=== PATIENT | female | born 1935 | race African-American/Black ===

== ENCOUNTER 2017-01-17 11:16 | Emergency (ER) | payer OTHER ==
[~2017-01-17] VITALS: Ht 157.5 cm; Wt 85.7 kg
--- NOTE | 2017-01-17 11:16 | NUR ---
Patient was BIBA and taken to bed 04 via gurney per EMS.
[2017-01-17 11:20] VITALS: BP 141/61
--- NOTE | 2017-01-17 11:20 | NUR ---
PATIENT PRESENTS TO ED BIB EMS WITH MECHANICAL FALL OUTSIDE HOME ONTO GRASS AREA, INJURED LEFT GREAT TOE----PARTIAL AMPUTATION---APPEARS HALF OF MEDIAL ASPECT OF LEFT GREAT TOE IS PARTIALLY OFF HX--HTN, HYPERLIPIDEMIA, PRE-DM DENIES N/V/D; SKIN IS PINK/WARM/DRY; AAOX4 WITH EVEN AND STEADY GAIT; LUNGS CLEAR BL; HR EVEN AND REGULAR; PT DENIES ANY FEVER, CP, SOB, OR COUGH AT THIS TIME; PATIENT STATES LEFT GREAT TOE PAIN OF 10/10 AT THIS TIME; VSS; PATIENT POSITIONED FOR COMFORT; HOB ELEVATED; BEDRAILS UP X2; BED DOWN. ER MD MADE AWARE OF PT STATUS.
--- NOTE | 2017-01-17 11:20 | NUR ---
ATTEMPTED TO CLEAN AREA GENTLY, PT C/O TOO MUCH PAIN. STOPPED AND NOTIFIED MD. POSSIBLE TOE BLOCK FOR PAIN CONTROL.
[2017-01-17] MEDS ORDERED: NACL 0.9% 1,000 ML IV SCH (11:21)
[2017-01-17] MEDS ORDERED: LIDOCAINE 2% 1000 MG/50 ML VIAL INJ ONE ×2 (11:25→11:33)
[2017-01-17] MEDS ORDERED: ONDANSETRON 4 MG/2 ML VIAL IVP ONE (11:25)
[2017-01-17] MEDS ORDERED: MORPHINE SULFATE 4 MG/ML SYR IVP ONE (11:30)
--- NOTE | 2017-01-17 11:37 | NUR ---
Per Dr. Alvarado, I called Radiology to let them know he wants a stat XRAY on this patient. I was told technical communicator is on break for another 10 min.
--- NOTE | 2017-01-17 11:39 | NUR ---
Pipe called Radiology regarding stat XRAY per Dr. Alvarado. bench repair technician is on break for another 10 min.
--- NOTE | 2017-01-17 11:47 | NUR ---
XRAY at bedside.
[2017-01-17 11:57] LABS: BASOPHILS # (AUTO) 0.2 K/uL (0.00-0.22); BASOPHILS % (AUTO) 2.7 % (0.0-2.0); EOSINOPHILS # (AUTO) 0.1 K/uL (0-0.4); HEMATOCRIT 35.2 % (36-48); HEMOGLOBIN 11.3 g/dL (12.0-16.0); LYMPHOCYTES # (AUTO) 2.3 K/uL (2.5-16.5); MEAN CORPUSCULAR HEMOGLOBIN 29 pg (27-31); MEAN CORPUSCULAR HGB CONC 32 g/dL (33-37); MEAN CORPUSCULAR VOLUME 90 fL (80-94); MONOCYTES # (AUTO) 0.6 K/uL (0.8-1.0); MONOCYTES % (AUTO) 7.9 % (1.7-9.3); NEUTROPHILS # (AUTO) 4.1 K/uL (1.8-7.7); NEUTROPHILS % (AUTO) 57.4 % (42.2-75.2); PLATELET COUNT (AUTO) 243 K/uL (140-450); RED BLOOD CELL COUNT(AUTO) 3.91 MIL/uL (4.20-5.40); RED CELL DISTRIBUTION WIDTH 12.8 % (11.6-13.7); WHITE BLOOD COUNT (AUTO) 7.4 K/uL (4.8-10.8)
[2017-01-17 12:12] LABS: ALANINE AMINOTRANSFERASE 29 U/L (12-78); ALBUMIN 3.8 g/dL (3.4-5.0); ALKALINE PHOSPHATASE 38 U/L (46-116); AMYLASE 68 U/L (25-115); ANION GAP 12.7 (8-16); ASPARTATE AMINOTRANSFERASE 27 U/L (15-37); CALCIUM 9.5 mg/dL (8.5-10.1); CARBON DIOXIDE 26.4 mmol/L (21-32); CHLORIDE 106 mmol/L (98-107); CREATININE 2.1 mg/dL (0.6-1.3); GLUCOSE 137 mg/dL (74-106); LIPASE 236 U/L (73-393); POTASSIUM 4.1 mmol/L (3.5-5.1); SODIUM SERUM 141 mmol/L (136-145); TOTAL BILIRUBIN 0.5 mg/dL (0.0-1.0); TOTAL PROTEIN, SERUM 8.2 g/dL (6.4-8.2); UREA NITROGEN, BLOOD 41 mg/dL (7-18)
[2017-01-17] MEDS ORDERED: NEOMYCIN/POLYMYXIN/BACITRACIN 0.9 GM/1 PKT TP ONE (13:08)
[2017-01-17 13:44] VITALS: BP 138/66
--- NOTE | 2017-01-17 13:44 | NUR ---
Patient discharged with v/s stable. Written and verbal after care instructions given and explained. Patient alert, oriented and verbalized understanding of instructions. Wheel Chair Assisted with to THE LOBBY AWAITING FOR SON FOR PICKUP. All questions addressed prior to discharge. ID band removed. Patient advised to follow up with PMD IN 10 DAYS. Rx of TYLENOL, KEFLEX, BACITRACIN given. Patient educated on indication of medication including possible reaction and side effects. Opportunity to ask questions provided and answered.
[2017-01-17 14:02] LABS: APPEARANCE,URINE CLEAR (CLEAR); BILIRUBIN,URINE NEGATIVE (NEGATIVE); BLOOD, URINE NEGATIVE (NEGATIVE); COLOR,URINE YELLOW (YELLOW); LEUKOCYTE ESTERASE ,URINE NEGATIVE (NEGATIVE); NITRITE, URINE NEGATIVE (NEGATIVE); PROTEIN,URINE NEGATIVE (NEGATIVE); UGLUCOSE NEGATIVE (NEGATIVE); UROBILINOGEN,URINE 0.2 EU/dL (0.2 - 1)
[2017-01-17 14:04] LABS: BACTERIA,URINE 1-9 (FEW) /HPF (None Seen); RBC,URINE 0-5 (RARE) /HPF (0-5); WBC,URINE 0-5 (RARE) /HPF (0-5)
[2017-01-17 14:05] LABS: SQUAMOUS EPITHELIAL CELL,UR 4-10 (MOD) /LPF (0-3 (FEW))
== END 2017-01-17 13:44 | disposition home or self-care (01) ==
LOC: MED 11:16
DX: S92.422B Displaced fracture of distal phalanx of left great toe, initial encounter for open fracture (principal); E11.9 Type 2 diabetes mellitus without complications; W01.10XA Fall on same level from slipping, tripping and stumbling with subsequent striking against unspecified object, initial encounter; Y93.89 Activity, other specified; Y92.89 Other specified places as the place of occurrence of the external cause; Y99.8 Other external cause status
CPT/HCPCS: 12002; 36415; 73630; 80053; 81001; 82150; 83690; 85025; 96361; 96374; 96375; 99285; J2001; J2270; J2405; Q0092